=== PATIENT | female | born 1965 | race Caucasian/White ===

== ENCOUNTER 2022-01-15 11:40 | Inpatient (IN) | payer MEDICAID ==
[~2022-01-15] VITALS: Ht 157.5 cm; Wt 116.1 kg
--- NOTE | 2022-01-15 11:50 | NUR ---
[id number] frm snf for noted sob/o2 desaturation and tachycardia x today
[2022-01-15] MEDS ORDERED: SENN-261 PO (12:09)
[2022-01-15] MEDS ORDERED: FURO-145 PO (12:09)
[2022-01-15] MEDS ORDERED: AMOX-430 PO (12:09)
[2022-01-15] MEDS ORDERED: LAMO25TA10 PO (12:09)
[2022-01-15] MEDS ORDERED: BISA10SU11 RC (12:09)
[2022-01-15] MEDS ORDERED: FLUV50TA3 PO (12:09)
[2022-01-15] MEDS ORDERED: GLUC1KIT SQ (12:09)
[2022-01-15] MEDS ORDERED: INSU100V42 SL (12:09)
[2022-01-15] MEDS ORDERED: MULT-24 PO (12:09)
[2022-01-15] MEDS ORDERED: TRIA80OI TP (12:09)
[2022-01-15] MEDS ORDERED: ACET-868 PO ×2 (12:09)
[2022-01-15] MEDS ORDERED: ATOR10TA PO (12:09)
[2022-01-15] MEDS ORDERED: INSU100V7 SQ (12:09)
[2022-01-15] MEDS ORDERED: AMLO-213 PO (12:09)
[2022-01-15] MEDS ORDERED: NIAC500T2 PO (12:09)
[2022-01-15] MEDS ORDERED: DOCU-141 PO (12:09)
[2022-01-15] MEDS ORDERED: DIPH50CA4 PO (12:09)
[2022-01-15] MEDS ORDERED: NITR0.4T48 SL (12:09)
[2022-01-15] MEDS ORDERED: ASPI-1420 PO (12:09)
[2022-01-15] MEDS ORDERED: NA P133E RC (12:09)
[2022-01-15] MEDS ORDERED: RISP0.2515 PO (12:09)
[2022-01-15] MEDS ORDERED: MAGN400O6 PO (12:09)
--- NOTE | 2022-01-15 12:10 | NUR ---
blood sample obtained sent to lab
--- NOTE | 2022-01-15 12:10 | NUR ---
established iv line right ac 20 g
--- NOTE | 2022-01-15 12:10 | NUR ---
on non rebreather 15L o2sat at 94-95
--- NOTE | 2022-01-15 12:11 | NUR ---
COVID SWAB COLLECTED AND SENT TO LAB
--- NOTE | 2022-01-15 12:21 | NUR ---
URINE SAMPLE COLLECTED AND SENT TO LAB
[2022-01-15] MEDS ORDERED: VANCOMYCIN 1 GM in IV D5W 250 ML IV ONE (12:30)
[2022-01-15] MEDS ORDERED: PIPERACILLIN /TAZOBACTAM 3.375 G in IV D5W 50 ML IV ONE (12:30)
[2022-01-15 12:36] LABS: BASOPHILS % (AUTO) 0.2 % (0.0-2.0); EOSINOPHILS % (AUTO) 2.7 % (0.0-6.0); HEMATOCRIT 44 % (33-45); LYMPHOCYTES # (AUTO) 1.4 K/uL (0.8-4.8); LYMPHOCYTES % (AUTO) 17.1 % (20.0-44.0); MEAN CORPUSCULAR HGB CONC 32 g/dl (31.0-36.0); MEAN CORPUSCULAR VOLUME 83 fL (82-100); MONOCYTES # (AUTO) 0.4 K/uL (0.1-1.30); NEUTROPHILS # (AUTO) 6.3 K/uL (1.8-8.9); PLATELET COUNT (AUTO) 207 K/uL (150-450); RED BLOOD CELL COUNT(AUTO) 5.24 MIL/uL (4.0-5.2); WHITE BLOOD COUNT (AUTO) 8.5 K/uL (4.3-11.0)
--- NOTE | 2022-01-15 12:43 | NUR ---
RAPID FLU SWAB OBTAINED AND SENT TO LAB
[2022-01-15 12:53] LABS: BILIRUBIN,URINE NEGATIVE (NEGATIVE); COLOR,URINE YELLOW (YELLOW); LEUKOCYTE ESTERASE ,URINE NEGATIVE (NEGATIVE); NITRITE, URINE NEGATIVE (NEGATIVE); PH,URINE 6.5 (5.0-8.0); PROTEIN,URINE 2+ mg/dl (NEGATIVE); UGLUCOSE NEGATIVE (NEGATIVE); UROBILINOGEN,URINE 0.2 EU/dL (0.2)
--- NOTE | 2022-01-15 13:02 | NUR ---
MOVE SHEET SUBMITTED.
[2022-01-15 13:27] LABS: BACTERIA,URINE Rare /HPF (None Seen); RBC,URINE 0-2 /HPF (0-2); SQUAMOUS EPITHELIAL CELL,UR Few /HPF (None Seen)
[2022-01-15 14:16] LABS: CALCIUM, SERUM 9.1 mg/dL (8.5-10.1); CREATININE 0.9 mg/dL (0.6-1.3); POTASSIUM 4.1 mmol/L (3.5-5.1)
[2022-01-15 14:27] LABS: BILIRUBIN,DIRECT 0.1 mg/dL (0.0-0.2); BILIRUBIN,TOTAL 0.2 mg/dL (0.2-1.0); TOTAL PROTEIN, SERUM 7.4 g/dL (6.4-8.2)
--- NOTE | 2022-01-15 14:45 | NUR ---
[facility] CALLED TRANSPORTATION SUPERINTENDENT PAGED.
[2022-01-15] MEDS ORDERED: methylPREDNISolone SOD SUCC 125 MG/2ML VIAL IV ONE (15:30)
[2022-01-15] MEDS ORDERED: BISACODYL SUPP (10 MG) 10 MG/SUPP.RECT SUPP.RECT RC PRN (15:30)
[2022-01-15] MEDS ORDERED: NA PHOS,M-B/NA PHOS,DI-BA 1 EA ENEMA RC PRN (15:30)
[2022-01-15] MEDS ORDERED: ACETAMINOPHEN ES 500 MG TABLET PO ONE (15:30)
[2022-01-15] MEDS ORDERED: diphenhydrAMINE HCL 50 MG CAPSULE PO PRN (15:30)
[2022-01-15] MEDS ORDERED: ACETAMINOPHEN ES 500 MG TABLET ONE (15:58)
[2022-01-15] MEDS ORDERED: Z GUARD REMEDY 4 OZ OINT TP PRN (16:00)
[2022-01-15] MEDS ORDERED: MORPHINE SULFATE INJ 2 MG/ML DISP.SYRIN IV PRN (16:00)
[2022-01-15] MEDS ORDERED: ONDANSETRON HCL/PF 4 MG/2 ML VIAL IVP PRN (16:00)
[2022-01-15] MEDS ORDERED: MAG HYDROX/AL HYDROX/SIMETH 30 ML UDC PO PRN (16:00)
[2022-01-15] MEDS ORDERED: LORAZEPAM 1 MG TABLET PO PRN (16:00)
[2022-01-15] MEDS ORDERED: MAGNESIUM HYDROXIDE 30 ML UDC PO PRN (16:00)
[2022-01-15] MEDS ORDERED: DEXTROSE 50%-WATER 50 ML DISP.SYRIN IV PRN (16:00)
[2022-01-15] MEDS ORDERED: ACETAMINOPHEN 325 MG TABLET PO PRN (16:00)
[2022-01-15] MEDS ORDERED: methylPREDNISolone SOD SUCC 125 MG/2ML VIAL IV SCH (17:00)
[2022-01-15] MEDS: BLOOD SUGAR DIAGNOSTIC 1 EACH STRIP VI SCH ×2 (17:30→23:02)
[2022-01-15] MEDS ORDERED: ASPIRIN EC 81 MG TABLET.DR PO ONE (18:24)
[2022-01-15] MEDS ORDERED: PIPERACILLIN /TAZOBACTAM 3.375 G in IV D5W 100 ML IV SCH (18:30)
[2022-01-15] MEDS: ASPIRIN EC 81 MG TABLET.DR PO SCH (18:32)
[2022-01-15] MEDS: PIPERACILLIN /TAZOBACTAM 3.375 G in IV D5W 100 ML IV SCH (19:00)
--- NOTE | 2022-01-15 19:30 | NUR ---
Note undone in EDM - 01/15/22 at 2055 by JESSICA RECEIVED REPORT FROM ALLEN GOODWIN. PATIENT CAME WITH CC OF GEN WEAKNESS AND CONGESTION. SHE IS FOR ADMISSION DT PNA. PATIENT IS ASLEEP BUT AROUSABLE. LAO SPEAKING. WITH IV CANNULA G20 ON LEFT AC. WITH O2 INH AT 5LPM. PATIENT IS ATTACHED TO MONITOR. VITALS CHECKED.
--- NOTE | 2022-01-15 20:56 | NUR ---
RECEIVED REPORT FROM ALLEN GOODWIN. PATIENT IS FOR ADMSN DT COPD. PATIENT IS AAOX4. ABLE TO MAKE NEEDS KNOWN. ON SIMPLE FACEMASKT AT 8LPM, WITH IV CANNULA ON RIGHT AC G20. ATTACHED TO MONITOR. VITALS CHECKED.
--- NOTE | 2022-01-15 21:07 | NUR ---
REPORT GIVEN TO ALLEN EUBANKS. TO SEND PT AFTER 20 MINS
[2022-01-15 22:20] VITALS: BP 136/83
--- NOTE | 2022-01-15 22:20 | NUR ---
PETE RN NOTE RECEIVED PT VIA GURNEY FROM ER. PT A/O X3-4, PT ON SIMPLE MASK 8L, TOLERATING WELL SAT >93%. NO S/S OF DISTRESS, TELE MONITOR READING SR HR 79. VSS. IV ACCESS ON RAC #20G. INTACT AND PATENT. PT HAS LEFT BREAST FOLD REDNESS, AND SCRATCH PRINCE OVER ENTIRE BODY, PT STATED SHE GETS ITCHY. PICTURES TAKEN AND PLACED IN CHART AND DOCUMENTED IN FLOWSHEET. PT ABLE TO MAKE NEEDS KNOWN. ALL SAFETY MEASURES IN PLACE. SIDE RAILS UP X3, PLACE CALL LIGHT IN REACH, BED IN LOWEST POSITION AND LOCKED.WILL CONTINUE TO MONITOR.
--- NOTE | 2022-01-15 22:26 | NUR ---
TRANSFERRED TO ROOM VIA ACLS
[2022-01-15] MEDS: LamoTRIgine 25 MG TABLET PO SCH (22:30)
--- NOTE | 2022-01-15 22:30 | NUR ---
RN NOTE LAMICTAL NOT GIVEN DUE TO UNAVAILABLE.
[2022-01-15] MEDS: risperiDONE 0.25 MG TABLET PO SCH (22:47)
[2022-01-15] MEDS: DOCUSATE SODIUM 100 MG CAPSULE PO SCH (22:47)
[2022-01-15] MEDS: ATORVASTATIN 10 MG TABLET PO SCH (22:47)
[2022-01-15] MEDS: methylPREDNISolone SOD SUCC 125 MG/2ML VIAL IV SCH (22:48)
[2022-01-15] MEDS: INSULIN GLARGINE, 100 UNIT/ML CARTRIDGE SQ SCH (23:04)
[2022-01-15] MEDS: *INSULIN REGULAR(HUMULIN R)HUM 100 UNIT/ML VIAL SQ PRN (23:09)
[2022-01-16] VITALS (9 sets, daily range): BP systolic 101–136; BP diastolic 49–83
[2022-01-16] MEDS: PIPERACILLIN /TAZOBACTAM 3.375 G in IV D5W 100 ML IV SCH ×3 (02:28→17:01)
[2022-01-16] MEDS: IV NS 0.9% 1,000 ML IV PRN (02:39)
[2022-01-16] MEDS: methylPREDNISolone SOD SUCC 125 MG/2ML VIAL IV SCH ×4 (04:46→21:45)
--- NOTE | 2022-01-16 06:42 | NUR ---
PETE RN CLOSING NOTE PT VIA GURNEY FROM ER. PT A/O X3-4, PT ON NC 4L, TOLERATING WELL SAT >96. NO S/S OF DISTRESS, TELE MONITOR READING SR HR 76. VSS. IV ACCESS ON RAC #20G. INTACT AND PATENT RUNNING NS@75ML/HR. PT ABLE TO MAKE NEEDS KNOWN. ALL DUE MEDS GIVEN. ALL HOSPITAL SAFETY MEASURES ARE IN PLACE. WILL CONTINUE PLAN OF CARE AND ANTICIPATE NEEDS.WILL ENDORSE TO MORNING SHIFT FOR [place].
--- NOTE | 2022-01-16 07:39 | NUR ---
PETE RN NOTE PATIENT ON BED WITH TRACH TO VENT SETTING ORDERED ON TELE MONITOR AFLUTTER \AFIB CONTROLLED AT THIS TIME , WITH GEVITY VIA G TUBE KEEP HOB ELEVATED, ON IVF ORDERED, BED IN LOWEST AND LOCKED POSITION , SAFETY MEASURE [PROVIDED, WILL CONT TO MONITOR AT ALL TIME, Addendum: 01/16/22 at 0744 by MARCELLO HAGEN RN WRONG CHART WRONG ENTRY
--- NOTE | 2022-01-16 07:45 | NUR ---
PETE RN NOTE PATIENT IN BED ALERT ORIENTED ORIENTED, ON 4L NC SATURATION 92%AT THIS TIMER,, RT AC HLINTACT ON IVF ORDERED ,BED IN LOWEST AND LOCKED POSITION SAFETY MEASURE PROVIDED, WILL CONT TO MONITOR ,ON TELE MONITOR SR , CALL LIGHT WITHIN REACH
[2022-01-16] MEDS: INSULIN REGULAR, HUMAN 100 UNIT/ML 3 ML VIAL SQ PRN ×3 (08:18→17:26)
[2022-01-16] MEDS: BLOOD SUGAR DIAGNOSTIC 1 EACH STRIP VI SCH ×4 (08:34→21:57)
[2022-01-16] MEDS: risperiDONE 0.25 MG TABLET PO SCH ×2 (08:37→16:50)
[2022-01-16] MEDS: AMLODIPINE BESYLATE 10 MG TABLET PO SCH (08:47)
[2022-01-16] MEDS: ENOXAPARIN SODIUM 40 MG/0.4 ML DISP.SYRIN SQ SCH (08:58)
[2022-01-16 09:22] LABS: BASOPHILS % (AUTO) 0.2 % (0.0-2.0); HEMATOCRIT 44 % (33-45); HEMOGLOBIN 13.9 g/dL (11.5-14.8); LYMPHOCYTES # (AUTO) 0.8 K/uL (0.8-4.8); LYMPHOCYTES % (AUTO) 9.3 % (20.0-44.0); MEAN CORPUSCULAR HGB CONC 32 g/dl (31.0-36.0); MEAN CORPUSCULAR VOLUME 84 fL (82-100); MONOCYTES # (AUTO) 0.1 K/uL (0.1-1.30); MONOCYTES % (AUTO) 1.1 % (2.0-12.0); NEUTROPHILS # (AUTO) 7.4 K/uL (1.8-8.9); NEUTROPHILS % (AUTO) 89.4 % (43.0-81.0); PLATELET COUNT (AUTO) 182 K/uL (150-450); RED BLOOD CELL COUNT(AUTO) 5.17 MIL/uL (4.0-5.2); WHITE BLOOD COUNT (AUTO) 8.2 K/uL (4.3-11.0)
--- NOTE | 2022-01-16 09:47 | NUR ---
PETE RN NOTE PATIENT IN BED ALERT ORIENTED, ON 4L NC SATURATION 96%AT THIS TIMER,, RT AC IV INTACT BED IN LOWEST AND LOCKED POSITION SAFETY MEASURE PROVIDED, WILL CONT TO MONITOR ,ON TELE MONITOR SR , CALL LIGHT WITHIN REACH Addendum: 01/16/22 at 1004 by MARCELLO HAGEN RN ABG DONE ORDERED
[2022-01-16 10:02] LABS: ABG BASE EXCESS 2.3 mmol/L; ABG OXYGEN SATURATION 94.6 % (92.0-98.5); ABG PCO2 53.6 mmHg (35.0-45.0); ABG PH 7.352 (7.350-7.450); ABG PO2 72.3 mmHg (75.0-100.0); AaDO2 122.2 mmHg; COHb 1.4 % (0.5-1.5); MetHb 0.2 % (0.0-1.5); O2Hb 93.1 % (94.0-97.0); SITE, ABG Left Radial
[2022-01-16] MEDS: LamoTRIgine 25 MG TABLET PO SCH ×2 (10:04→20:36)
[2022-01-16] MEDS: FLUVOXAMINE MALEATE 50 MG TABLET PO SCH (10:04)
[2022-01-16] MEDS: IPRATROPIUM NEB FS 0.5 MG/2.5 ML AMPUL.NEB NEB SCH ×3 (10:10→19:54)
[2022-01-16] MEDS: ALBUTEROL HALF STRENGTH 1.25 MG/3 ML VIAL.NEB NEB SCH ×3 (10:10→19:54)
--- NOTE | 2022-01-16 11:06 | NUR ---
CUSTOMER SERVICE CASHIER NOTES ABG REPORT DONE, REPORTED TO DR BAILEY, CONTINUE VIA MT 4L WILL MONITOR
[2022-01-16 11:47] LABS: CALCIUM, SERUM 8.7 mg/dL (8.5-10.1); CREATININE 1.1 mg/dL (0.6-1.3); PHOSPHORUS 2.6 mg/dL (2.5-4.9); POTASSIUM 4.4 mmol/L (3.5-5.1)
--- NOTE | 2022-01-16 11:49 | NUR ---
RIVET HEATER NOTE PT BLOOD SUGAR LEVEL IS 413, BY SCALE: 15 UNITS OF INSULIN GIVEN AND DR PARISH NOTIFIED, ACCORDING TO DR RESPONSE NO ADDITIONAL ORDER AT THIS TIME.
--- NOTE | 2022-01-16 12:07 | NUR ---
PETE RN NOTE STRETCH BOX TENDER AWARE THAT BS IS HIGH, WILL CHANGE THE DIET
--- NOTE | 2022-01-16 14:40 | NUR ---
adore rn note noted redness lt breast fold ,dr dickey aware with order wound consult and applied z guard oint will f\u
--- NOTE | 2022-01-16 14:46 | NUR ---
adore rn note cont on 4l nc saturation 92% ,on breathing tx by rt, will cont to monitor
--- NOTE | 2022-01-16 16:50 | NUR ---
REHABILITATION NURSE NOTE RISPERIDONE HOLD AT THIS TIME, PATIENT SLEEPY, BP134/70, HR94, O2 99, RESP 21
[2022-01-16] MEDS: ASPIRIN EC 81 MG TABLET.DR PO SCH (17:05)
[2022-01-16] MEDS: *INSULIN REGULAR(HUMULIN R)HUM 100 UNIT/ML VIAL SQ PRN ×2 (17:12→21:59)
--- NOTE | 2022-01-16 17:15 | NUR ---
FUTURES TRADER NOTE CALL DR LEYVA REGARDING PTs BS LEVEL OF 462, ORDERED 4UNIT REG INSULIN ADDITIONAL TO 15 BY SLIDING SCALE
[2022-01-16] MEDS ORDERED: INSULIN REGULAR, HUMAN 100 UNIT/ML 10 ML VIAL SQ STA (17:19)
--- NOTE | 2022-01-16 17:26 | NUR ---
COMPLAINT EVALUATION SUPERVISOR NOTE 4 UNITS REG INSULIN GIVEN PER DR LEYVA ORDER
--- NOTE | 2022-01-16 19:07 | NUR ---
MANAGER ECONOMIC CLOSING NOTE PT IN BED, SUPINE POSITION, CONDITION STABLE, ALL SAFETY MEASURES IMPLEMENTED, CONTINUE TO MONITOR, ENDORSED TO THE LINOLEUM PRINTER.
--- NOTE | 2022-01-16 19:39 | NUR ---
RN OPENING NOTE PT A&OX3. SKIN IS PINK WARM AND DRY. RESPIRATIONS EVEN AND UNLABORED ON NC 4 LPM. PT HAS REDNESS UNDER L BREAST. RAC 20G IV INTACT AND RUNNING NS @ 75 ML/HR. BED LOCKED AND AT LOWEST POSITION. X2 SIDE RAILS UP AND CALL LIGHT WITHIN REACH.
[2022-01-16] MEDS: ATORVASTATIN 10 MG TABLET PO SCH (21:46)
[2022-01-16] MEDS: DOCUSATE SODIUM 100 MG CAPSULE PO SCH (21:47)
[2022-01-16] MEDS: INSULIN GLARGINE, 100 UNIT/ML CARTRIDGE SQ SCH (21:57)
[2022-01-17] VITALS: BP 121/72
[2022-01-17] MEDS: IPRATROPIUM NEB FS 0.5 MG/2.5 ML AMPUL.NEB NEB SCH ×4 (01:52→19:32)
[2022-01-17] MEDS: ALBUTEROL HALF STRENGTH 1.25 MG/3 ML VIAL.NEB NEB SCH ×4 (01:52→19:32)
[2022-01-17] MEDS: PIPERACILLIN /TAZOBACTAM 3.375 G in IV D5W 100 ML IV SCH (01:57)
[2022-01-17 04:00] VITALS: BP 121/77
[2022-01-17] MEDS: methylPREDNISolone SOD SUCC 125 MG/2ML VIAL IV SCH ×2 (04:51→09:21)
[2022-01-17 06:24] LABS: HEMATOCRIT 42 % (33-45); HEMOGLOBIN 13.4 g/dL (11.5-14.8); LYMPHOCYTES # (AUTO) 0.8 K/uL (0.8-4.8); LYMPHOCYTES % (AUTO) 8.7 % (20.0-44.0); MEAN CORPUSCULAR HGB CONC 32 g/dl (31.0-36.0); MEAN CORPUSCULAR VOLUME 84 fL (82-100); MONOCYTES # (AUTO) 0.3 K/uL (0.1-1.30); MONOCYTES % (AUTO) 3.3 % (2.0-12.0); PLATELET COUNT (AUTO) 194 K/uL (150-450); RED BLOOD CELL COUNT(AUTO) 4.98 MIL/uL (4.0-5.2); WHITE BLOOD COUNT (AUTO) 9.1 K/uL (4.3-11.0)
[2022-01-17 07:00] LABS: CALCIUM, SERUM 8.9 mg/dL (8.5-10.1); CREATININE 0.8 mg/dL (0.6-1.3); POTASSIUM 4.8 mmol/L (3.5-5.1)
--- NOTE | 2022-01-17 07:35 | NUR ---
RN CLOSING NOTE PT A&OX3. PT'S FACE IS FLUSHED AND RED. PT IS VISIBLY TREMBLING. BG CHECKED WITH LEVEL OF 270. STATES THAT SHE IS HAVING SOB BUT RESPIRATIONS EVEN ON NC 4 LPM WITH O2 SAT OF 93%. RAC 20G IV INTACT AND RUNNING NS @ 75 ML/HR. AM NURSE NOTIFIED OF PT'S CONDITION. BED LOCKED AND AT LOWEST POSITION. X2 SIDE RAILS UP AND CALL LIGHT WITHIN REACH.
[2022-01-17 08:00] VITALS: BP 124/57
--- NOTE | 2022-01-17 08:18 | NUR ---
RN NOTE PT RECEIVED IN BED, AWAKE ALERT AND RESPONSIVE. ON O2 VIA NC @4L. TOLERATING WELL. WITH IV ACCESS ON RAC WITH IVF NS @75/HR. SAFETY MEASURES FOLLOWED. WILL CONTINUE TO MONITOR.
[2022-01-17] MEDS: risperiDONE 0.25 MG TABLET PO SCH ×2 (09:10→18:10)
[2022-01-17] MEDS: LamoTRIgine 25 MG TABLET PO SCH ×2 (09:10→21:57)
[2022-01-17] MEDS: FLUVOXAMINE MALEATE 50 MG TABLET PO SCH (09:11)
[2022-01-17] MEDS: AMLODIPINE BESYLATE 10 MG TABLET PO SCH (09:11)
[2022-01-17] MEDS: BLOOD SUGAR DIAGNOSTIC 1 EACH STRIP VI SCH ×4 (09:14→22:03)
[2022-01-17] MEDS: ENOXAPARIN SODIUM 40 MG/0.4 ML DISP.SYRIN SQ SCH (09:14)
[2022-01-17] MEDS: INSULIN REGULAR, HUMAN 100 UNIT/ML 3 ML VIAL SQ PRN ×3 (09:17→18:18)
[2022-01-17] MEDS ORDERED: NITROGLYCERIN 0.4 MG/TAB BOTTLE ONE (10:00)
[2022-01-17] MEDS ORDERED: METOPROLOL TARTRATE INJ 5 MG/5 ML AMPUL ONE (10:00)
--- NOTE | 2022-01-17 10:58 | NUR ---
WOUND CARE CONSULT: PT PRESENTS WITH REDNESS TO LEFT BREASTFOLD, PRESENT ON ADMISSION. PT USING PUREWICK SYSTEM FOR URINARY INCONTINENCE. DISCUSSED SKIN PROTECTION WITH NURSING STAFF. MD IN AGREEMENT WITH PLAN OF CARE. MD IN AGREEMENT WITH PLAN OF CARE.
[2022-01-17 12:00] VITALS: BP 135/72
[2022-01-17] MEDS: IV NS 0.9% 1,000 ML IV PRN (13:45)
[2022-01-17] MEDS ORDERED: Z GUARD REMEDY 4 OZ OINT TP PRN (15:00)
[2022-01-17 16:00] VITALS: BP 95/62
[2022-01-17] MEDS: CLOTRIMAZOLE 1% 15 GM TUBE TP SCH (18:09)
[2022-01-17] MEDS: ASPIRIN EC 81 MG TABLET.DR PO SCH (18:10)
--- NOTE | 2022-01-17 19:30 | NUR ---
RN NOTES RECEIVED PT FOR CONTINUITY OF CARE. PATIENT A/OX2-3 IN NO S/SX OF ACUTE DISTRESS AT THIS TIME; CURRENTLY ON 4L OF 02 NC; WITH 02 SAT >95% AT THIS TIME. WITH IV ACCESS ON R AC#20 PATENT, INTACT AND FLUSHING WELL. WITH RUNNING IV FLUIDS ORDERED. ON CONSISTENT CARB DIET. ENSURE SAFETY MEASURES WITHIN THE SHIFT. PATIENT BED ALARM IS ON. HEAD OF BED ELEVATED. BED IS LOCKED, IN LOWEST POSITION AND SIDE RAILS UP. CALL LIGHT WITHIN REACH OF THE PATIENT. WILL CONTINUE TO MONITOR AND REASSESS FOR ANY CHANGES AND WILL CARRY OUT ANY ONGOING AND ACTIVE MD ORDER.
[2022-01-17 20:00] VITALS: BP 135/72
--- NOTE | 2022-01-17 20:02 | NUR ---
RN NOTE PT RESTING IN BED, AWAKE ALERT AND RESPONSIVE. ON O2 VIA NC @4L. TOLERATING WELL. WITH IV ACCESS ON RAC WITH IVF NS @75/HR. DUE MEDICATIONS GIVEN, AM/PM CARE RENDERED. SAFETY MEASURES FOLLOWED. WILL CONTINUE TO MONITOR.
[2022-01-17] MEDS: DOCUSATE SODIUM 100 MG CAPSULE PO SCH (21:57)
[2022-01-17] MEDS: ATORVASTATIN 10 MG TABLET PO SCH (21:57)
--- NOTE | 2022-01-17 22:10 | NUR ---
RN NOTES NOTIFIED EDITH ORTIZ (LYNETTE NESS) REGARDING BSG RESULT :416 MG/DL. 10 UNITS GIVEN AND NOTIFIED EDITH ORTIZ PER PROTOCOL. ACKNOWLEDGED. WAS ADVISE TO RECHECK IN 15 MINS. WILL MONITOR AND ADVISE . QC LAB TECHNICIAN MADE AWARE. Addendum: 01/17/22 at 2245 by CHRISTY GREY RN @2240 RECHECKED BLOOD SUGAR 386 MG/DL; AWARE. NO NEW ORDERS.
[2022-01-17] MEDS: INSULIN GLARGINE, 100 UNIT/ML CARTRIDGE SQ SCH (22:12)
[2022-01-17] MEDS: *INSULIN REGULAR(HUMULIN R)HUM 100 UNIT/ML VIAL SQ PRN (22:13)
[2022-01-18] VITALS: BP 136/71
[2022-01-18] MEDS: ALBUTEROL HALF STRENGTH 1.25 MG/3 ML VIAL.NEB NEB SCH ×3 (01:41→13:16)
[2022-01-18] MEDS: IPRATROPIUM NEB FS 0.5 MG/2.5 ML AMPUL.NEB NEB SCH ×3 (01:41→13:16)
[2022-01-18 04:00] VITALS: BP 129/82
--- NOTE | 2022-01-18 04:00 | NUR ---
RN NOTES PATIENT REMAINED TO BE IN NO SIGNS OF ACUTE RESPIRATORY DISTRESS , SAFE ENVIRONMENT MAINTAINED FOR PT. AM PATIENT CARE ASSISTANCE RENDERED. WILL CONTINUE TO MONITOR AND REASSESS FOR ANY CHANGES THROUGHOUT THE SHIFT.
[2022-01-18] MEDS: IV NS 0.9% 1,000 ML IV PRN (04:50)
--- NOTE | 2022-01-18 06:43 | NUR ---
RN CLOSING NOTE: PATIENT REMAINS IN ROOM IN NO SIGNS OF RESPIRATORY DISTRESS, PATIENT NOW ON 2L OF O2 VIA NC;TOLERATING WELL SATURATING @ >95% SP02. SAFETY MEASURES IMPLEMENTED, BED IN LOWEST POSITION, LOCKED, SIDE RAILS UP, CALL LIGHT WITHIN REACH. ALL NEEDS AND ORDERS ADDRESSED DURING THE SHIFT. IV ACCESS MAINTAINED INTACT, SECURED AND FLUSHING WELL. ALL DUE MEDS GIVEN ORDERED & SCHEDULED ; PATIENT TOLERATED WELL. PATIENT KEPT CLEAN AND COMFORTABLE WITHIN THE SHIFT. PATIENT ENDORSED TO INCOMING SHIFT RN WITH STABLE VITAL SIGN AND FOR CONTINUITY OF CARE.
--- NOTE | 2022-01-18 07:40 | NUR ---
RN NOTE PT RECEIVED IN BED, AWAKE ALERT AND RESPONSIVE. ON O2 VIA NC @2L. TOLERATING WELL. WITH IV ACCESS ON RAC WITH IVF NS @75/HR. SAFETY MEASURES FOLLOWED. WILL CONTINUE TO MONITOR.
[2022-01-18 08:00] VITALS: BP 150/84
[2022-01-18] MEDS: risperiDONE 0.25 MG TABLET PO SCH (08:35)
[2022-01-18] MEDS: FLUVOXAMINE MALEATE 50 MG TABLET PO SCH (08:35)
[2022-01-18] MEDS: AMLODIPINE BESYLATE 10 MG TABLET PO SCH (08:36)
[2022-01-18] MEDS: LamoTRIgine 25 MG TABLET PO SCH (08:36)
[2022-01-18] MEDS: ENOXAPARIN SODIUM 40 MG/0.4 ML DISP.SYRIN SQ SCH (08:38)
[2022-01-18] MEDS: BLOOD SUGAR DIAGNOSTIC 1 EACH STRIP VI SCH ×2 (08:38→12:13)
[2022-01-18] MEDS: INSULIN REGULAR, HUMAN 100 UNIT/ML 3 ML VIAL SQ PRN ×2 (08:40→12:50)
[2022-01-18] MEDS: CLOTRIMAZOLE 1% 15 GM TUBE TP SCH (09:00)
[2022-01-18 12:00] VITALS: BP 116/63
--- NOTE | 2022-01-18 14:56 | NUR ---
RN NOTE SPOKE WITH ALLEN DE LA VEGA FOR REPORT AND [place].
--- NOTE | 2022-01-18 16:58 | NUR ---
Pt. picked up by 2 ambulance personel for DC to SNF ([facility]). DC instructions given, patient VS stable, IV access discontinued.
== END 2022-01-18 16:47 | DRG 140 ==
LOC: ER 11:44 → TELE1 22:01 → TELE-TD 22:14
PROVIDERS: ADMIT Internal Medicine; ATTEND Nurse Practitioner Acute Care
DX: J44.1 Chronic obstructive pulmonary disease with (acute) exacerbation (principal); J96.01 Acute respiratory failure with hypoxia; G93.40 Encephalopathy, unspecified; E44.0 Moderate protein-calorie malnutrition; I11.0 Hypertensive heart disease with heart failure; I50.9 Heart failure, unspecified; G40.909 Epilepsy, unspecified, not intractable, without status epilepticus; E11.65 Type 2 diabetes mellitus with hyperglycemia; T38.0X5A Adverse effect of glucocorticoids and synthetic analogues, initial encounter; Y92.129 Unspecified place in nursing home as the place of occurrence of the external cause; Z20.822 Contact with and (suspected) exposure to COVID-19; K21.9 Gastro-esophageal reflux disease without esophagitis; F25.9 Schizoaffective disorder, unspecified; Z79.4 Long term (current) use of insulin; Z79.82 Long term (current) use of aspirin; Z79.899 Other long term (current) drug therapy; F32.9 Major depressive disorder, single episode, unspecified; E88.09 Other disorders of plasma-protein metabolism, not elsewhere classified; E66.2 Morbid (severe) obesity with alveolar hypoventilation; Z68.42 Body mass index [BMI] 45.0-49.9, adult; G47.33 Obstructive sleep apnea (adult) (pediatric); T78.40XA Allergy, unspecified, initial encounter; T36.0X5A Adverse effect of penicillins, initial encounter; Y92.239 Unspecified place in hospital as the place of occurrence of the external cause; M21.371 Foot drop, right foot; M21.372 Foot drop, left foot; Z74.01 Bed confinement status; F94.0 Selective mutism; Z87.891 Personal history of nicotine dependence
CPT/HCPCS: 36415; 36600; 71045-TC; 80048-TC; 80076-TC; 81001; 82803-TC; 82945-TC; 82962-TC; 83605-TC; 83735-TC; 83880; 84100-TC; 84484-TC; 85025-TC; 87040-TC; 87081-TC; 87086-TC; 93970-TC; 94799-TC; C9803; G0378; J1650; J1815; J2543; J2930; J3370; J3490; J7030; J7050; J7060

== ENCOUNTER 2022-09-01 20:49 | Emergency (ER) | payer MEDICAID, OTHER ==
[~2022-09-01] VITALS: Ht 162.6 cm; Wt 108.9 kg
[~2022-09-01 20:49] MED LIST: ACET-868 PO; AMLO-213 PO; ASPI-1420 PO; ATOR10TA PO; BISA10SU11 RC; DIPH50CA4 PO; DOCU-141 PO; FLUV50TA3 PO; FURO-145 PO; GLUC1KIT SQ; INSU100V42 SL; INSU100V7 SQ; LAMO25TA10 PO; MAGN400O6 PO; MULT-24 PO; NA P133E RC; NIAC500T2 PO; NITR0.4T48 SL; RISP0.2515 PO; SENN-261 PO; TRIA80OI TP
--- NOTE | 2022-09-01 21:00 | NUR ---
WALT 79 FROM SNF FOR WEAKNESS AND LOW BP SINCE YESTERDAY
--- NOTE | 2022-09-01 21:09 | NUR ---
HUMAN RESOURCES OFFICE ASSISTANT AT BEDSIDE
--- NOTE | 2022-09-01 21:53 | NUR ---
BED CAMPBELL PLACED UNDER PATIENT, AWAITING URINE
[2022-09-01 21:56] LABS: BASOPHILS % (AUTO) 0.6 % (0.0-2.0); EOSINOPHILS % (AUTO) 4.5 % (0.0-6.0); HEMATOCRIT 37 % (33-45); HEMOGLOBIN 12.1 g/dL (11.5-14.8); LYMPHOCYTES # (AUTO) 2.7 K/uL (0.8-4.8); LYMPHOCYTES % (AUTO) 37.5 % (20.0-44.0); MEAN CORPUSCULAR HGB CONC 33 g/dl (31.0-36.0); MEAN CORPUSCULAR VOLUME 85 fL (82-100); MONOCYTES # (AUTO) 0.5 K/uL (0.1-1.30); MONOCYTES % (AUTO) 6.4 % (2.0-12.0); NEUTROPHILS # (AUTO) 3.7 K/uL (1.8-8.9); PLATELET COUNT (AUTO) 189 K/uL (150-450); RED BLOOD CELL COUNT(AUTO) 4.31 MIL/uL (4.0-5.2); WHITE BLOOD COUNT (AUTO) 7.3 K/uL (4.3-11.0)
--- NOTE | 2022-09-01 22:12 | NUR ---
BANG CATH PLACED, URINE COLLECTED, SENT TO LAB
--- NOTE | 2022-09-01 22:13 | NUR ---
URINE SMAPLE COLLECTED AND SENT TO LAB
[2022-09-01 22:21] LABS: CALCIUM, SERUM 8.8 mg/dL (8.5-10.1); CARBON DIOXIDE 28 mmol/L (21-32); CHLORIDE 104 mmol/L (98-107); CREATININE 1.8 mg/dL (0.6-1.3); GLUCOSE 115 mg/dL (74-106); POTASSIUM 4.2 mmol/L (3.5-5.1); SODIUM SERUM 141 mmol/L (136-145); UREA NITROGEN, BLOOD 25 mg/dL (7-18)
[2022-09-01 22:28] LABS: BILIRUBIN,URINE NEGATIVE (NEGATIVE); COLOR,URINE DARK YELLOW (YELLOW); LEUKOCYTE ESTERASE ,URINE TRACE (NEGATIVE); NITRITE, URINE NEGATIVE (NEGATIVE); PH,URINE 5.5 (5.0-8.0); PROTEIN,URINE 1+ mg/dl (NEGATIVE); UGLUCOSE NEGATIVE (NEGATIVE); UROBILINOGEN,URINE 0.2 EU/dL (0.2)
[2022-09-01 22:34] LABS: ALANINE AMINOTRANSFERASE 31 U/L (12-78); ALBUMIN 2.9 g/dL (3.4-5.0); ALKALINE PHOSPHATASE 71 U/L (46-116); ASPARTATE AMINOTRANSFERASE 21 U/L (15-37); BILIRUBIN,DIRECT 0.1 mg/dL (0.0-0.2); BILIRUBIN,TOTAL 0.3 mg/dL (0.2-1.0)
[2022-09-01] MEDS ORDERED: MIDODRINE HCL (5MG) 5 MG TABLET PO STA (23:13)
[2022-09-01] MEDS ORDERED: MIDODRINE HCL (5MG) 5 MG TABLET ONE ×2 (23:16→23:20)
--- NOTE | 2022-09-01 23:39 | NUR ---
[facility] CALLED ETA 60-90 MINUTES
--- NOTE | 2022-09-02 00:32 | NUR ---
ANGELA POTTS AT [facility]
--- NOTE | 2022-09-02 01:41 | NUR ---
PATIENT BEING TRANSPORTED BACK TO FACILITY VIA [facility]
[2022-09-02 01:43] VITALS: BP 97/79; TEMP 98.5; O2SAT 94
== END 2022-09-02 01:44 ==
LOC: ER 20:51
DX: I95.9 Hypotension, unspecified (principal); I11.0 Hypertensive heart disease with heart failure; I50.9 Heart failure, unspecified; E11.9 Type 2 diabetes mellitus without complications; J44.9 Chronic obstructive pulmonary disease, unspecified; K21.9 Gastro-esophageal reflux disease without esophagitis; Z79.899 Other long term (current) drug therapy
CPT/HCPCS: 36415; 71045-TC; 80048-TC; 80076-TC; 83605-TC; 83880; 84484-TC; 85025-TC; 85730-TC; 87040-TC